=== PATIENT | male | born 1960 | race Caucasian/White ===

== ENCOUNTER 2025-02-26 15:47 | Outpatient (RCR) | payer MEDICARE, SELFPAY | END 2025-04-30 10:49 | disposition home or self-care (01) | LOC: PT 15:47 | PROVIDERS: Visit Provider Family Medicine | DX: M89.8X1 Other specified disorders of bone, shoulder (principal); S43.50XD Sprain of unspecified acromioclavicular joint, subsequent encounter; S42.002S Fracture of unspecified part of left clavicle, sequela; M25.512 Pain in left shoulder | CPT/HCPCS: 97110; 97112; 97140; 97162 ==